=== PATIENT | female | born 1990 | race Caucasian/White ===

== ENCOUNTER → 2017-06-06 | Outpatient (CLI) | payer MEDICAID ==
--- NOTE | 2017-06-06 16:43 | REP ---
OB ULTRASOUND: Real-time sonographic evaluation of the gravid uterus is performed. There is a single living intrauterine gestation. The estimated gestational age is 26 weeks 4 days. EDC 09/08/2017. BPD 66 mm = 26 weeks 4 days HC 253 mm = 27 weeks 3 days AC 220 mm = 26 weeks 3 days Femur length 50 mm = 26 weeks 6 days HC/AC ratio 1.15 within normal range. Estimated weight 970 grams at the 47th percentile. Cervix is closed and measures 4 cm in length. heart rate 150 beats per minute. Amniotic fluid within normal limits. LINDA 14.7 with a normal range of 9.6 to 22.5. SD ratio 3.35 within normal range. RI 0.71 within normal range. SEEN/GROSSLY UNREMARKABLE Lateral ventricles Yes Posterior fossa Yes Upper lip Yes Four-chamber heart Yes LVOT Yes RVOT Yes Stomach Yes Cord insertion Yes Three vessel cord Yes Kidneys Yes Bladder Yes Spine Yes position: Vertex. Placenta: Posterior and grade 1 with no previa or abruption. Amniotic fluid: Within normal limits. Cervix is closed and measures 4 cm in length. Signed by Judd Bello MD 06/09/2017 09:54 A
== END ==
LOC: M SMT 13:32
PROVIDERS: ATTEND Obstetrics & Gynecology
DX: Z34.82 Encounter for supervision of other normal pregnancy, second trimester (principal); Z3A.26 26 weeks gestation of pregnancy

== ENCOUNTER → 2017-08-05 | Outpatient (CLI) | payer OTHER ==
[2017-08-05 18:10] LABS: BASO % 0.2 % (0.0-1.0); EOS # 0.1 10^3/uL (0.0-0.50); EOS % 0.9 % (0.0-3.0); IMMATURE GRANULOCYTE % 1.4 % (0-0); LYMPH # 1.6 10^3/uL (1.5-6.5); LYMPH % 20.1 % (24.0-44.0); MEAN CORPUSCULAR HEMOGLOBIN 31.9 pg (27.0-33.0); MEAN CORPUSCULAR HGB CONC 34.2 g/dl (32.0-36.5); MEAN CORPUSCULAR VOLUME 93.1 fl (80.0-96.0); MONO # 0.7 10^3/uL (0.0-0.8); MONO % 8.3 % (0.0-5.0); NEUTROPHILS # 5.6 10^3/uL (1.8-7.7); NEUTROPHILS % 69.1 % (36.0-66.0); PLATELET COUNT, AUTOMATED 143 10^3/uL (150-450); RED CELL DISTRIBUTION WIDTH 13.9 % (11.5-14.5); WHITE BLOOD COUNT 8.1 10^3/uL (4.0-10.0)
[2017-08-06 11:36] LABS: HBsAg Prenatal NEGATIVE (NEGATIVE)
== END ==
LOC: M SMT 13:52
PROVIDERS: ATTEND Obstetrics & Gynecology
DX: Z34.82 Encounter for supervision of other normal pregnancy, second trimester (principal)

== ENCOUNTER → 2017-08-13 | Outpatient (REF) | payer OTHER | LOC: M LAB REF 12:52 | DX: Z34.83 Encounter for supervision of other normal pregnancy, third trimester (principal) | CPT/HCPCS: 87081 ==

== ENCOUNTER 2017-09-11 08:21 | Inpatient (IN) | payer OTHER ==
[2017-09-11] MEDS: LACTATED RINGER'S 1000 ML IV (08:26)
[2017-09-11] MEDS ORDERED: LR 1,000 ML IV ×2 (08:26→09:36)
[2017-09-11] MEDS ORDERED: OXYTOCIN 30 UNITS IN 0.9% NaCl 500ML IV BAG (J2590) As Ordered (09:03)
[2017-09-11 09:15] LABS: HEMATOCRIT 37.8 % (36.0-47.0); HEMOGLOBIN 13.1 g/dl (12.0-16.0); MEAN CORPUSCULAR HEMOGLOBIN 30.5 pg (27.0-33.0); MEAN CORPUSCULAR HGB CONC 34.7 g/dl (32.0-36.5); MEAN CORPUSCULAR VOLUME 88.1 fl (80.0-96.0); PLATELET COUNT, AUTOMATED 116 10^3/uL (150-450); RED BLOOD COUNT 4.29 10^6/uL (4.00-5.40); RED CELL DISTRIBUTION WIDTH 13.2 % (11.5-14.5); WHITE BLOOD COUNT 9.7 10^3/uL (4.0-10.0)
[2017-09-11] MEDS: OXYTOCIN DRIP 30 UNITS in APPROPRIATE DILUENT 1 EA IV (09:36)
[2017-09-11] MEDS ORDERED: RHOGAM 300 MCG (1500 IU) INJ (J2790) IM (09:45)
[2017-09-11] MEDS ORDERED: DOCUSATE SODIUM 100 MG CAP PO (09:45)
[2017-09-11] MEDS ORDERED: DIBUCAINE 1% OINTMENT 30GM TOP (09:45)
[2017-09-11] MEDS ORDERED: PROMETHAZINE 25 MG TAB PO (09:45)
[2017-09-11] MEDS ORDERED: MEASLES,MUMPS,RUBELLA VACCINE INJ (MMR-II) (90707) SC (09:45)
[2017-09-11] MEDS ORDERED: ONDANSETRON 4MG/2ML VIAL (J2405) IV (09:45)
[2017-09-11] MEDS ORDERED: IBUPROFEN 800 MG TAB PO (09:45)
[2017-09-11] MEDS: ACETAMINOPHEN 500 MG TAB PO ×2 (12:15→20:33)
[2017-09-11] MEDS: PERCOCET 5MG/325MG TAB PO ×2 (17:55→22:28)
[2017-09-11] MEDS: FAMOTIDINE 20 MG TAB PO (20:33)
[2017-09-12] MEDS: PERCOCET 5MG/325MG TAB PO ×3 (05:17→16:02)
[2017-09-12] MEDS: PRENATAL VITAMINS CHEWABLE TABLET PO (07:59)
[2017-09-12] MEDS: FAMOTIDINE 20 MG TAB PO (07:59)
== END 2017-09-12 19:45 | disposition home or self-care (01) | DRG 560 ==
LOC: M LDO 08:21 → M LDI 08:30 → M OBS 11:22
PROVIDERS: Obstetrics & Gynecology
PROC: 10E0XZZ Delivery of Products of Conception, External Approach (ICD-10-PCS; principal; 2017-09-11)
DX: O48.0 Post-term pregnancy (principal); F17.200 Nicotine dependence, unspecified, uncomplicated; Z37.0 Single live birth; Z3A.40 40 weeks gestation of pregnancy; O99.334 Smoking (tobacco) complicating childbirth

== ENCOUNTER 2024-02-22 12:34 | Inpatient (IN) | payer OTHER ==
[~2024-02-22] VITALS: Ht 157.5 cm; Wt 74.5 kg
[~2024-02-22 12:34] MED LIST: PEPC1TAB5 PO; PRENTAB55 PO; TYLE325T5 PO
[2024-02-22 12:36] VITALS: BP 118/67
[2024-02-22 12:44] VITALS: BP 134/77
[2024-02-22] MEDS ORDERED: SUBO8MIS SL (12:52)
[2024-02-22] MEDS ORDERED: HOME MED LIST COMPLETE! XX SCH (12:55)
[2024-02-22] MEDS ORDERED: diphenhydrAMINE 25MG CAP PO PRN (13:05)
[2024-02-22 13:27] VITALS: BP 122/78
[2024-02-22 13:31] LABS: BASO % 0.2 % (0.0-1.0); EOS % 0.4 % (0.0-3.0); HEMATOCRIT 37.8 % (36.0-47.0); HEMOGLOBIN 12.4 g/dl (12.0-15.5); LYMPH % 9.2 % (24.0-44.0); MEAN CORPUSCULAR HEMOGLOBIN 28.2 pg (27.0-33.0); MEAN CORPUSCULAR HGB CONC 32.8 g/dl (32.0-36.5); MEAN CORPUSCULAR VOLUME 85.9 fl (80.0-96.0); MONO # 0.6 10^3/uL (0.0-0.8); NEUTROPHILS # 8.7 10^3/uL (1.5-8.5); NEUTROPHILS % 83.9 % (36.0-66.0); PLATELET COUNT, AUTOMATED 136 10^3/uL (150-450); WHITE BLOOD COUNT 10.3 10^3/uL (4.0-10.0)
[2024-02-22 14:11] LABS: BARBITURATES URINE REFLEX NEGATIVE (NEGATIVE); BENZODIAZEPINES URINE REFLEX NEGATIVE (NEGATIVE); COCAINE METABOLITE URINE REFLE NEGATIVE (NEGATIVE); METHADONE URINE REFLEX NEGATIVE (NEGATIVE); OPIATES URINE REFLEX NEGATIVE (NEGATIVE); PHENCYCLIDINE URINE REFLEX NEGATIVE (NEGATIVE)
[2024-02-22 14:30] VITALS: BP 110/62
[2024-02-22 14:34] LABS: HIV 1&2 SCREEN NEGATIVE (NEGATIVE)
[2024-02-22 14:47] LABS: AMPHETAMINES URINE REFLEX PENDING CONFIRMATION (NEGATIVE); CANNABINOIDS URINE REFLEX PENDING CONFIRMATION (NEGATIVE)
[2024-02-22 14:48] LABS: HEPATITIS C VIRUS ABY INDEX > 11.00 INDEX (<0.8)
[2024-02-22 15:05] VITALS: BP 150/80; O2SAT 98
[2024-02-22] MEDS ORDERED: ACETAMINOPHEN TAB 650MG DOSE (2X325MG) PO PRN (18:55)
[2024-02-22] MEDS ORDERED: RHO(D) IMMUNE GLOBULIN/MALTOSE 500MCG(2500IU)/2.2ML VIAL (WINRHO) IM SCH (18:55)
[2024-02-22] MEDS ORDERED: METHYLERGONOVINE MALEATE 0.2 MG TAB PO PRN (18:55)
[2024-02-22] MEDS ORDERED: DIBUCAINE 1% OINTMENT 30GM TOP PRN (18:55)
[2024-02-22] MEDS ORDERED: DOCUSATE SODIUM 100MG CAPSULE PO PRN (18:55)
[2024-02-22] MEDS: BUPRENORPHINE/NALOXONE 8-2MG SUBLINGUAL TABLET(SUBOXONE) SL SCH (21:00)
[2024-02-22] MEDS: ACETAMINOPHEN 500 MG TAB PO PRN (21:33)
[2024-02-22] MEDS: GABAPENTIN 300 MG CAP PO SCH (22:49)
[2024-02-23 06:00] VITALS: BP 125/75; O2SAT 98
[2024-02-23] MEDS: NICOTINE 21MG/24HR 1 EA TRANSDERMAL TD SCH (09:00)
[2024-02-23] MEDS: PRENATAL VITAMINS CHEWABLE TABLET PO SCH (09:10)
[2024-02-24] MEDS ORDERED: MEASLES,MUMPS,RUBELLA VACCINE INJ (MMR-II) SC.IMMUN ONE (09:00)
[2024-02-24 17:37] LABS: HCV RNA log10 6.46 Log IU/mL (NOT DETECTED)
== END 2024-02-23 11:15 | disposition home or self-care (01) | DRG 561 ==
LOC: M LDI 12:34 → M OBS 14:44
PROVIDERS: ADMIT Specialist; ATTEND Specialist
DX: Z39.0 Encounter for care and examination of mother immediately after delivery (principal)